=== PATIENT | male | born 1960 | race Caucasian/White ===

== ENCOUNTER 2019-07-15 09:24 | Emergency (ER) | payer BC ==
[2019-07-15] MEDS ORDERED: EPINEPHrine/Lidocaine/Tetracai 3 ML ML TOP ONE (09:52)
[2019-07-15] MEDS ORDERED: Diphtheria,Pertussis(Acell),Tetanus Vaccine 0.5 ML Syringe IM ONE (09:52)
--- NOTE | 2019-07-15 10:54 | EDM.PDOC ---
ED HPI GENERAL MEDICAL PROBLEM - General Chief Complaint: Laceration Stated Complaint: HEAD LACERATION Time Seen by Provider: 07/15/19 09:42 Source of Information: Reports: Patient History Limitations: Reports: No Limitations - History of Present Illness INITIAL COMMENTS - FREE TEXT/NARRATIVE: The patient presents with a 3cm laceration to the top of his head. He was in his skid steer moving snow and he hit something in the concrete and hit his head on top of the cab. He had no LOC. He has no headache or neck pain. He has a 3cm laceration to the top of the head on the left side. His tetanus is not up to date. Onset: Sudden Duration: Minutes: Location: Reports: Head Improves with: Reports: None Worsens with: Reports: None Associated Symptoms: Reports: No Other Symptoms - Related Data Allergies Allergy/AdvReac Type Severity Reaction Status Date / Time No Known Allergies Allergy Verified 07/15/19 09:42 Home Meds: Home Meds . [No Known Home Meds] 07/15/19 [History] Past Medical History - Past Health History Medical/Surgical History: Denies Medical/Surgical History Social & Family History - Tobacco Use Smoking Status *Q: Never Smoker ED ROS GENERAL - Review of Systems Review Of Systems: See Below Constitutional: Reports: No Symptoms HEENT: Reports: No Symptoms Respiratory: Reports: No Symptoms Cardiovascular: Reports: No Symptoms Endocrine: Reports: No Symptoms GI/Abdominal: Reports: No Symptoms ED EXAM, SKIN/RASH Exam: See Below Exam Limited By: No Limitations General Appearance: Alert, No Apparent Distress Ears: Normal External Exam Nose: Normal Inspection Head: Other (3cm laceration to the top left side of her head) Neck: Normal Inspection, Supple, Non-Tender Respiratory/Chest: No Respiratory Distress ED SKIN PROCEDURES - Laceration/Wound Repair Left Head Appearance: Linear, Clean Anesthetic Type: Topical Skin Prep: Saline Exploration/Debridement/Repair: Wound Explored, In a Bloodless Field, Explored to Base Closed with: Grey Lac/Wound length In cm: 3 # of Sutures: 3 Suture Type: Interrupted Course - Vital Signs Last Recorded V/S: Last Vital Signs Temp 97.4 F 07/15/19 09:38 Pulse 87 07/15/19 09:38 Resp 16 07/15/19 09:38 BP 165/115 H 07/15/19 09:38 Pulse Ox 98 07/15/19 09:38 - Orders/Labs/Meds Orders: Active Orders 24 hr Category Date Time Status Vaccines to be Administered [RC] PER UNIT ROUTINE Care 07/15/19 09:52 Active Meds: Medications Discontinued Medications Generic Name Dose Route Start Last Admin Trade Name Vivian PRN Reason Stop Dose Admin Diphtheria/Tetanus/Acell Pertussis 0.5 ml 07/15/19 09:52 07/15/19 09:59 Adacel IM 07/15/19 09:53 0.5 ml .ONCE ONE Administration Lidocaine/Tetracaine 3 ml 07/15/19 09:52 07/15/19 09:59 Let Soln TOP 07/15/19 09:53 3 ml ONETIME ONE Administration - Re-Assessments/Exams Free Text/Narrative Re-Assessment/Exam: 07/15/19 10:52 I up dated his tetanus and then put 3 grey in the laceration. Departure - Departure Time of Disposition: 10:55 Disposition: Home, Self-Care 01 Condition: Good Clinical Impression: Laceration of head Qualifiers: Encounter type: initial encounter Location of open wound of head: scalp Foreign body presence: without foreign body Qualified Code(s): S01.01XA - Laceration without foreign body of scalp, initial encounter - Discharge Information *PRESCRIPTION DRUG MONITORING PROGRAM REVIEWED*: No *COPY OF PRESCRIPTION DRUG MONITORING REPORT IN PATIENT FELY: No Referrals: PCP,None [Primary Care Provider] - Wilmar Knox PA-C [Physician Airframe Design Engineer] - 1 Week Additional Instructions: Clean the wound with warm soapy water 2 times per day and apply antibiotic ointment after. Have the grey removed in 1 week. Look for any signs of infection such as redness, swelling, pain or drainage. If you see any of these signs please return, you may need oral antibiotics. - My Orders Last 24 Hours: My Active Orders 07/15/19 09:52 Vaccines to be Administered [RC] PER UNIT ROUTINE - Assessment/Plan Last 24 Hours: My Active Orders 07/15/19 09:52 Vaccines to be Administered [RC] PER UNIT ROUTINE
== END 2019-07-15 11:07 | disposition home or self-care (01) ==
LOC: JD.ED 09:24
DX: S01.01XA Laceration without foreign body of scalp, initial encounter (principal); Z23 Encounter for immunization; W22.8XXA Striking against or struck by other objects, initial encounter
CPT/HCPCS: 12002; 90471; 90715; 99282; 99282-25

== ENCOUNTER 2021-10-12 09:10 | Day surgery (SDC) | payer BC ==
[~2021-10-12 09:10] MED LIST: Lactated Ringers 1,000 ML IV SCH; Lidocaine 1%/Sod Bicarbonate in NS 8.4% 1 ML Syringe IDERM PRN; Sodium Chloride 0.9% 10 ML Syringe FLUSH PRN; Sodium Chloride 0.9% 10 ML Syringe FLUSH SCH
[2021-10-12] MEDS ORDERED: Lidocaine 1% 4 ML ONE (09:17)
[2021-10-12] MEDS ORDERED: Propofol 200 MG/20 ML SDV ONE (09:18)
== END 2021-10-12 10:33 | disposition home or self-care (01) ==
LOC: JD.SDS 09:10
PROVIDERS: ATTEND Surgery
DX: Z12.11 Encounter for screening for malignant neoplasm of colon (principal); K64.8 Other hemorrhoids; I10 Essential (primary) hypertension; Z86.010 Personal history of colon polyps; Z98.890 Other specified postprocedural states; Z87.891 Personal history of nicotine dependence
CPT/HCPCS: 45378; J2704; J7120; 00812

== ENCOUNTER 2024-08-07 15:31 | Emergency (ER) | payer MEDICARE, OTHER | END 2024-08-07 16:55 | disposition home or self-care (01) | LOC: JD.ED 15:31 | DX: R20.2 Paresthesia of skin (principal); T50.905A Adverse effect of unspecified drugs, medicaments and biological substances, initial encounter; I10 Essential (primary) hypertension; Z79.899 Other long term (current) drug therapy | CPT/HCPCS: 99283 ==

== ENCOUNTER 2024-09-26 06:45 | Day surgery (SDC) | payer MEDICARE, OTHER ==
[~2024-09-26 06:45] MED LIST changes: +Dexamethasone 4 MG/ML 5 ML MDV ONE; +EPINEPHrine 1 MG/ML SDV ONE; -Lidocaine 1%/Sod Bicarbonate in NS 8.4% 1 ML Syringe IDERM PRN; +Ondansetron 4 MG/2 ML SDV ONE; +Propofol 200 MG/20 ML SDV ONE; +Ropivacaine 0.5% 5 MG/ML 30 ML SDV ONE; +dexmedeTOMIDine HCl 200 MCG/2 ML SDV ONE
[2024-09-26] MEDS ORDERED: Sodium Chloride 0.9% 10 ML Syringe FLUSH SCH (07:00)
[2024-09-26] MEDS ORDERED: Sodium Chloride 0.9% 10 ML Syringe FLUSH PRN (07:00)
[2024-09-26] MEDS: Lactated Ringers 1,000 ML IV SCH (07:10)
[2024-09-26 07:37] LABS: INR 1.03; PROTHROMBIN TIME 10.9 SECONDS (9.7-12.0)
[2024-09-26 07:38] LABS: PTT,PARTIAL THROMBOPLSTIN TIME 26.9 SECONDS (21.7-31.4)
[2024-09-26] MEDS ORDERED: Lidocaine 1% 2 ML ONE (07:59)
[2024-09-26] MEDS ORDERED: Midazolam 1 MG/ML 2 ML SDV ONE (08:00)
[2024-09-26] MEDS ORDERED: fentaNYL 100 MCG/2 ML SDV ONE ×2 (08:00→08:42)
[2024-09-26] MEDS: oxyCODONE ER 10 MG TAB.ER PO ONE (08:10)
[2024-09-26] MEDS: Acetaminophen 325 MG Tab PO ONE (08:10)
[2024-09-26] MEDS: Pregabalin 25 MG Cap PO SCH (08:10)
[2024-09-26] MEDS ORDERED: Rocuronium 50 MG/5 ML Vial ONE (08:40)
[2024-09-26] MEDS ORDERED: ceFAZolin 2 GM Vial ONE (09:09)
[2024-09-26] MEDS: Tranexamic Acid 1,000 MG/10 ML Vial ONE (10:04)
[2024-09-26] MEDS: VANCOmycin 1 GM SDV ONE (10:04)
[2024-09-26] MEDS ORDERED: Lactated Ringers 500 ML ONE (10:06)
[2024-09-26] MEDS ORDERED: Sugammadex Sodium 200 MG/2 ML VIAL IV ONE (10:08)
[2024-09-26] MEDS ORDERED: Ketorolac 30 MG/ML SDV ONE (10:09)
[2024-09-26] MEDS ORDERED: oxyCODONE 5 MG Tab PO PRN (11:24)
[2024-09-26] MEDS ORDERED: HYDROmorphone 0.5 MG/0.5 ML Syringe IVPUSH PRN (12:19)
[2024-09-26] MEDS ORDERED: Ondansetron 4 MG/2 ML SDV IVPUSH PRN (12:19)
[2024-09-26] MEDS ORDERED: fentaNYL 100 MCG/2 ML SDV IVPUSH PRN (12:19)
== END 2024-09-26 15:35 | disposition home or self-care (01) ==
LOC: JD.SDS 06:45
PROVIDERS: ATTEND Orthopaedic Surgery
DX: M19.012 Primary osteoarthritis, left shoulder (principal); M75.102 Unspecified rotator cuff tear or rupture of left shoulder, not specified as traumatic; I10 Essential (primary) hypertension; E78.5 Hyperlipidemia, unspecified; Z79.899 Other long term (current) drug therapy; Z79.01 Long term (current) use of anticoagulants
CPT/HCPCS: 23472; 36415; 64415; 76000; 85610; 85730; 97110; 97116; 97162; 97530; A9270; C1713; C1769; C1776; J0171; J0690; J1100; J1885; J2250; J2405; J2704; J2795; J3010; J7120; 01638; J3490